=== PATIENT | female | born 1990 | race Caucasian/White ===

== ENCOUNTER 2017-08-31 20:50 | Inpatient (IN) | payer OTHER, MEDICAID ==
[~2017-08-31] VITALS: Ht 157.5 cm; Wt 54.4 kg
[~2017-08-31 20:50] MED LIST: FERR1TAB84 PO; FERR325C PO; PREN-142 PO; PREN-88 PO
[2017-08-31 21:26] LABS: CLARITY URINE CLOUDY (CLEAR); COLOR URINE YELLOW (YELLOW); GLUCOSE URINE NEGATIVE (NEGATIVE); KETONES URINE NEGATIVE (NEGATIVE); LEUKOCYTE ESTERASE URINE 2+ (NEGATIVE); NITRITE URINE NEGATIVE (NEGATIVE); OCCULT BLOOD URINE 3+ (NEGATIVE); PROTEIN URINE TRACE (NEGATIVE); SPECIFIC GRAVITY URINE 1.022 (1.005-1.030)
[2017-08-31] MEDS ORDERED: ONDANSETRON HCL 4MG/2ML VIAL IV STA (21:40)
[2017-08-31] MEDS ORDERED: MORPHINE SULFATE 4 MG/ML CPJ (NOT FOR IM USE) IV STA (21:40)
[2017-08-31] MEDS ORDERED: SODIUM CHLORIDE 0.9% 1,000 ML IV ONE (21:40)
[2017-08-31] MEDS ORDERED: MORPHINE SULFATE 10 MG/ML CPJ IV NR (21:46)
[2017-08-31 22:01] LABS: CHLORIDE 105 mEq/L (98-107)
[2017-08-31 22:02] LABS: BASOPHILS % 0.3 % (0.0-2.0); EOSINOPHILS % 0.2 % (0.0-5.0); HEMATOCRIT. 39.1 % (36.0-48.0); HEMOGLOBIN. 13.2 g/dL (12.0-16.0); LYMPHOCYTES % 9.2 % (20.0-50.0); MEAN CORPUSCULAR HEMOGLOBIN 27.8 pg (28.0-32.0); MEAN CORPUSCULAR VOLUME 82.1 fL (81.0-99.0); MEAN PLATELET VOLUME 7.8 fl (7.4-10.4); MONOCYTES % 4.4 % (2.0-8.0); NEUTROPHILS % 85.9 % (40.0-76.0); PLATELET 263 x1000/uL (130-400); RED BLOOD CELL COUNT 4.76 mill/uL (4.2-5.4)
[2017-08-31 22:03] LABS: HCG SCREEN NEGATIVE
[2017-08-31 22:04] LABS: CARBON DIOXIDE 26 mEq/L (21-32); INR 1.2
[2017-08-31] MEDS ORDERED: ACETAMINOPHEN 325MG TABLET PO ONE (22:15)
[2017-08-31] MEDS ORDERED: MORPHINE SULFATE 10 MG/ML CPJ IV ONE (23:15)
[2017-08-31] MEDS ORDERED: IOHEXOL-300 100 ML BOTTLE ONE (23:43)
[2017-09-01] VITALS (7 sets, daily range): BP systolic 91–113; BP diastolic 51–63
[2017-09-01] MEDS ORDERED: SODIUM CHLORIDE 0.9% 1,000 ML IV ONE (01:12)
[2017-09-01] MEDS ORDERED: CEFTRIAXONE 1 G PREMIX 50 ML IV ONE (01:15)
[2017-09-01] MEDS ORDERED: MORPHINE SULFATE 10 MG/ML CPJ IV ONE (02:15)
[2017-09-01] MEDS ORDERED: LORAZEPAM 2MG/ML CPJ IV PRN (03:15)
[2017-09-01] MEDS ORDERED: DIPHENHYDRAMINE 50MG/ML VIAL IV PRN (03:15)
[2017-09-01] MEDS ORDERED: HYDROMORPHONE HCL/PF 2MG/ML CPJ IV PRN (03:15)
[2017-09-01] MEDS ORDERED: ACETAMINOPHEN 325MG TABLET PO PRN (03:15)
[2017-09-01] MEDS ORDERED: IPRATROPIUM/ALBUTEROL 0.5-3(2.5)MG/3ML NEB INH PRN (03:15)
[2017-09-01] MEDS ORDERED: NA PHOS,M-B/NA PHOS,DI-BA ENEMA 118ML PR PRN (03:15)
[2017-09-01] MEDS ORDERED: MAGNESIUM/ALUMINUM HYDROXIDE/SIMETHICONE 30ML UDC PO PRN (03:15)
[2017-09-01] MEDS ORDERED: DOCUSATE SODIUM 100MG CAPSULE PO PRN (03:15)
[2017-09-01] MEDS ORDERED: CLONIDINE 0.1MG TABLET PO PRN (03:15)
[2017-09-01] MEDS ORDERED: GUAIFENESIN 200MG/10ML SUGAR FREE UDC PO PRN (03:15)
[2017-09-01] MEDS: SODIUM CHLORIDE 0.45% 1,000 ML IV SCH (05:39)
[2017-09-01] MEDS: LEVOFLOXACIN 500MG PREMIX 100 ML IV SCH (05:39)
[2017-09-01] MEDS: HYDROCODONE/APAP 7.5/325MG 1 TAB TABLET PO PRN ×3 (05:40→16:32)
[2017-09-01] MEDS: ONDANSETRON HCL 4MG/2ML VIAL IV PRN ×3 (07:09→22:11)
[2017-09-01] MEDS: ENOXAPARIN 40MG/0.4ML SYR SUBCUT SCH (09:13)
[2017-09-02] VITALS: BP 110/60
[2017-09-02 04:00] VITALS: BP 95/55
[2017-09-02] MEDS: SODIUM CHLORIDE 0.45% 1,000 ML IV SCH (05:44)
[2017-09-02] MEDS: LEVOFLOXACIN 500MG PREMIX 100 ML IV SCH (05:44)
[2017-09-02 06:09] LABS: BASOPHILS % 0.4 % (0.0-2.0); EOSINOPHILS % 1.3 % (0.0-5.0); HEMATOCRIT. 33.5 % (36.0-48.0); HEMOGLOBIN. 11.2 g/dL (12.0-16.0); LYMPHOCYTES % 32.1 % (20.0-50.0); MEAN CORPUSCULAR HEMOGLOBIN 27.8 pg (28.0-32.0); MEAN CORPUSCULAR VOLUME 82.8 fL (81.0-99.0); MEAN PLATELET VOLUME 7.9 fl (7.4-10.4); MONOCYTES % 7.3 % (2.0-8.0); NEUTROPHILS % 58.9 % (40.0-76.0); PLATELET 208 x1000/uL (130-400); RED BLOOD CELL COUNT 4.04 mill/uL (4.2-5.4); RED CELL DISTRIBUTION WIDTH 13.6 % (11.6-14.6)
[2017-09-02 07:13] LABS: CARBON DIOXIDE 26 mEq/L (21-32); HDL CHOLESTEROL 40 mg/dL (40-59); LDL CHOLESTEROL 57 mg/dL (5-100)
[2017-09-02 07:58] LABS: CHLORIDE 105 mEq/L (98-107)
[2017-09-02 08:00] VITALS: BP 108/69
[2017-09-02] MEDS: ENOXAPARIN 40MG/0.4ML SYR SUBCUT SCH (09:21)
[2017-09-02] MEDS: ONDANSETRON HCL 4MG/2ML VIAL IV PRN (09:25)
[2017-09-02 10:21] VITALS: BP 108/69
== END 2017-09-02 12:00 | disposition home or self-care (01) | DRG 463 ==
LOC: ER 20:57 → 6EST 09-01 01:32 → ENRESERV 09-01 01:44
PROVIDERS: ADMIT Internal Medicine; ATTEND Internal Medicine
DX: N39.0 Urinary tract infection, site not specified (principal); R65.10 Systemic inflammatory response syndrome (SIRS) of non-infectious origin without acute organ dysfunction; E86.0 Dehydration; J45.909 Unspecified asthma, uncomplicated
CPT/HCPCS: 36415; 74177; 80053; 80061; 81001; 83690; 84703; 85025; 85610; 87077; 87086; 87186; 96361; 96365; 96375; 96376; 99285; J0696; J1650; J1956; J2270; J2405; J7030; Q9967

== ENCOUNTER 2018-12-13 13:20 | Emergency (ER) | payer MEDICAID ==
[~2018-12-13] VITALS: Ht 160 cm; Wt 57.0 kg
[2018-12-13] MEDS ORDERED: SODIUM CHLORIDE 0.9% 1,000 ML IV ONE (14:54)
[2018-12-13] MEDS ORDERED: ONDANSETRON HCL 4MG/2ML INJ IV STA (14:54)
[2018-12-13 14:55] LABS: CLARITY URINE CLEAR (CLEAR); COLOR URINE YELLOW (YELLOW); KETONES URINE TRACE (NEGATIVE); LEUKOCYTE ESTERASE URINE 1+ (NEGATIVE); NITRITE URINE NEGATIVE (NEGATIVE); OCCULT BLOOD URINE NEGATIVE (NEGATIVE); PROTEIN URINE NEGATIVE (NEGATIVE); SPECIFIC GRAVITY URINE 1.027 (1.005-1.030); UROBILINOGEN URINE 0.2 E.U./dL (0.2-1.0)
[2018-12-13] MEDS ORDERED: CEFTRIAXONE 1 G PREMIX 50 ML IV ONE (15:45)
[2018-12-13 15:46] LABS: BASOPHILS % 0.6 % (0.0-2.0); EOSINOPHILS % 0.4 % (0.0-5.0); HEMATOCRIT. 38.8 % (36.0-48.0); HEMOGLOBIN. 12.9 g/dL (12.0-16.0); LYMPHOCYTES % 24.8 % (20.0-50.0); MEAN CORPUSCULAR HEMOGLOBIN 27.4 pg (28.0-32.0); MEAN CORPUSCULAR VOLUME 82.6 fL (81.0-99.0); MEAN PLATELET VOLUME 7.8 fl (7.4-10.4); MONOCYTES % 5.2 % (2.0-8.0); PLATELET 383 x1000/uL (130-400); RED CELL DISTRIBUTION WIDTH 14.4 % (11.6-14.6)
[2018-12-13 15:51] LABS: CHLORIDE 105 mEq/L (98-107)
[2018-12-13 15:53] LABS: INR 1.1; PROTHROMBIN TIME 11.5 sec (9.1-11.1)
[2018-12-13 16:01] LABS: HCG SCREEN NEGATIVE
[2018-12-13] MEDS ORDERED: IBUPROFEN 400MG TABLET PO ONE (17:30)
[2018-12-13 17:51] VITALS: BP 100/68
== END 2018-12-13 18:09 | disposition home or self-care (01) ==
LOC: ER 13:20
DX: N12 Tubulo-interstitial nephritis, not specified as acute or chronic (principal); J45.909 Unspecified asthma, uncomplicated; Z98.51 Tubal ligation status
CPT/HCPCS: 36415; 76830; 76856; 80053; 81003; 81025; 83690; 84703; 85025; 85610; 96361; 96365; 96375; 99284; J0696; J2405; J7030

== ENCOUNTER 2022-07-24 07:00 | Emergency (ER) | payer MEDICAID ==
[~2022-07-24] VITALS: Ht 157.5 cm; Wt 63.5 kg
[2022-07-24 07:04] VITALS: BP 112/73
[2022-07-24 07:52] LABS: CLARITY URINE CLOUDY (CLEAR); COLOR URINE YELLOW (YELLOW); KETONES URINE TRACE (NEGATIVE); LEUKOCYTE ESTERASE URINE 2+ (NEGATIVE); NITRITE URINE POSITIVE (NEGATIVE); OCCULT BLOOD URINE NEGATIVE (NEGATIVE); PROTEIN URINE TRACE (NEGATIVE); SPECIFIC GRAVITY URINE 1.028 (1.005-1.030); UROBILINOGEN URINE 0.2 E.U./dL (0.2-1.0)
[2022-07-24] MEDS ORDERED: ONDANSETRON 4MG ODT PO ONE (08:30)
[2022-07-24] MEDS ORDERED: KETOROLAC 15MG/ML VIAL IM ONE (08:30)
[2022-07-24] MEDS ORDERED: ALBU18HF2 IH (09:17)
[2022-07-24] MEDS ORDERED: CEPH500C2 MT (09:17)
== END 2022-07-24 11:25 | disposition home or self-care (01) ==
LOC: ER 07:00
DX: N39.0 Urinary tract infection, site not specified (principal); N12 Tubulo-interstitial nephritis, not specified as acute or chronic; J45.909 Unspecified asthma, uncomplicated; Z98.51 Tubal ligation status
CPT/HCPCS: 81003; 81025; 86592; 87077; 87086; 87186; 96372; 99283; J1885; Q0162; Z7610

== ENCOUNTER 2023-09-01 16:13 | Emergency (ER) | payer MEDICAID, OTHER ==
[~2023-09-01] VITALS: Ht 152.4 cm; Wt 70.5 kg
[~2023-09-01 16:13] MED LIST changes: +ALBU18HF2 IH; +CEPH500C2 MT; -FERR1TAB84 PO; -FERR325C PO; -PREN-142 PO; -PREN-88 PO
[2023-09-01 16:22] VITALS: BP 122/73; PULSE 85; RESP 16; O2SAT 100
[2023-09-01 17:00] VITALS: TEMP 97.9
[2023-09-01] MEDS ORDERED: ACETAMINOPHEN 325MG TABLET PO ONE (17:00)
[2023-09-01] MEDS ORDERED: NAPR-681 MT (18:08)
== END 2023-09-01 19:01 | disposition home or self-care (01) ==
LOC: ER 16:13
DX: S93.402A Sprain of unspecified ligament of left ankle, initial encounter (principal); J45.909 Unspecified asthma, uncomplicated; Z98.51 Tubal ligation status; X58.XXXA Exposure to other specified factors, initial encounter; Y93.89 Activity, other specified; Y92.89 Other specified places as the place of occurrence of the external cause; Y99.8 Other external cause status
CPT/HCPCS: 73610; 73630; 29515; 99284; Z7610